=== PATIENT | female | born 1965 | race Two or more races ===

== ENCOUNTER 2023-09-21 14:03 | Emergency (ER) | payer MEDICAID, OTHER ==
[~2023-09-21] VITALS: Ht 170.2 cm; Wt 67.0 kg
[2023-09-21 14:04] VITALS: O2SAT 98
[2023-09-21] MEDS ORDERED: CLONIDINE 0.2MG TABLET PO ONE (14:30)
[2023-09-21] MEDS ORDERED: TOPUD MT (16:03)
[2023-09-21] MEDS ORDERED: CLONIDINE 0.1MG TABLET PO NR (16:15)
[2023-09-21] MEDS ORDERED: IBUPROFEN 400MG TABLET PO NR (16:15)
[2023-09-21] MEDS ORDERED: IBUPROFEN 800MG TABLET PO ONE (16:15)
[2023-09-21 16:22] VITALS: BP 140/84; PULSE 78; RESP 18; TEMP 98.3
== END 2023-09-21 17:02 | disposition home or self-care (01) ==
LOC: ER 14:03
DX: S09.90XA Unspecified injury of head, initial encounter (principal); I10 Essential (primary) hypertension; X58.XXXA Exposure to other specified factors, initial encounter; Y93.89 Activity, other specified; Y92.89 Other specified places as the place of occurrence of the external cause; Y99.8 Other external cause status
CPT/HCPCS: 99284

== ENCOUNTER 2023-09-21 17:11 | Emergency (ER) | payer MEDICAID ==
[~2023-09-21] VITALS: Ht 152.4 cm; Wt 55.0 kg
[~2023-09-21 17:11] MED LIST: TOPUD MT
[2023-09-21 17:27] VITALS: BP 155/92; PULSE 74; RESP 16; TEMP 98.2; O2SAT 96
== END 2023-09-21 22:31 | disposition left against medical advice (07) ==
LOC: ER 17:11
DX: I10 Essential (primary) hypertension (principal); Z53.21 Procedure and treatment not carried out due to patient leaving prior to being seen by health care provider
CPT/HCPCS: 99281